=== PATIENT | female | born 1930 | race Caucasian/White ===

== ENCOUNTER 2018-05-21 23:27 | Emergency (ER) ==
[2018-05-21] MEDS ORDERED: LIDOCAINE HCL 1% SDV SUBCUT STA (23:32)
--- NOTE | 2018-05-21 23:35 | ED.PDOC ---
General ED Provider: Dr. MISSAEL BERMEO Chief Complaint: Fall Stated Complaint: Patient is an 87 year old who had an unwitnessed fall resulting in injury to the right forehead and bleeding. It is unknown if she had any loss of conciousness. Time Seen by Physician: 23:35 Mode of Arrival: Ambulance Information Source: [facility], EMT Exam Limitations: Dementia Primary Care Provider: PAUL BARBOSA Nursing and Triage Documentation Reviewed and Agree: Yes Does patient meet sepsis criteria?: No System Inflammatory Response Syndrome: Not Applicable Sepsis Protocol: For patient's 13 years and over: Temp is 96.8 and below OR 101 and greater Pulse >90 BPM Resp >20/minute Acutely Altered Mental Status Are patient's symptoms suggestive of a new infection, such as: -Pneumonia -Skin, Soft Tissue -Endocarditis -UTI -Bone, Joint Infection -Implantable Device -Acute Abdominal Infection -Wound Infection -Meningitis -Blood Stream Catheter Infection -Unknown Trauma/Injury Complaint Exam - Head Injury Complaint/Exam Location of Pain: Reports: Right, Forehead Mechanism of Injury: Reports: Trauma Onset/Duration: 1 hour Symptoms Are: Still present Aggravating: Reports: Unknown Alleviating: Reports: Unknown Associated Signs and Symptoms: Denies: Nausea, Vomiting Loss of Consciousness: Unknown Related History: Reports: Similar episode SDH Risk Factors: Present: Elderly, Recent trauma. Absent: Anticoagulant use, Coagulopathy Cervical Spine Injury Risk Factors: Present: None. Absent: Evidence of intoxication, Focal neuro deficit Related Surgical History: Reports: None Glascow Coma Scale (see protocol): 15 Focal Weakness: Present: None Focal Sensory Loss: Present: None Gag Reflex Present: Yes Head Picture: 1 - 4 x 2 cm Laceration Differential Diagnoses: Intracranial Bleed, Trauma Review of Systems - Review Of Systems Constitutional: Denies: Fever GI: Denies: Diarrhea, Vomiting Musculoskeletal: Reports: Joint pain (chronic ) Skin: Reports: Bruising Neurological: Reports: Headache, Other (chronic memory loss ) All Other Systems: Other (Limited due to demenait) Past Medical History - Past Medical History Endocrine: Reports: Dyslipidemia Cardiovascular: Reports: Hypertension (and hypotension.), CHF Respiratory: Reports: None Hematological: Reports: Anemia Gastrointestinal: Reports: GERD Genitourinary: Reports: Other (urinary incontinance ) Neuro/Psych: Reports: Anxiety, Depression, Dementia Musculoskeletal: Reports: Arthritis Cancer: Reports: None - Surgical History General Surgical History: Reports: Unknown - Family History Family History: Reports: Unknown - Social History Hx Substance Use: No Physical Exam - Physical Exam Appearance: Well-appearing Ill-appearing: None Pain Distress: None Eyes: MARCEL, EOMI ENT: Ears normal, Nose normal Neck: Supple Respiratory: Airway patent, Breath sounds clear Cardiovascular: Pulses normal, Bradycardia Skin: Warm, Dry Neurological: Alert, Disoriented Psychiatric: Affect appropriate, Mood appropriate Interpretation - Radiology Interpretation Radiology Interpretation By: Radiologist Radiology Results: No acute changes Exam Interpreted: CT Scan Procedures - Laceration/Wound Repair Right Forehead Laceration Wound Description: Stellate Wound Length (cm): 4 Wound Width: 2 Wound Depth: 0.5 Wound Explored: Clean Wound Irrigated: No Wound Prep: Hibiclens Anesthesia: Lidocaine Wound Repaired With: Sutures Suture Size and Type: 4.0 Prolene Number of Sutures: 13 (Running ) Sterile Dressing Applied?: Yes Splint Applied?: No Sling Applied?: No Critical Care Note - Critical Care Note Total Time (mins): 0 Course - Course Orders, Labs, Meds: Orders Category Date Time Status Diphth,Pertuss(Acell),Tet Vac [Boostrix] MEDS 05/22/18 00:33 Discontinued 0.5 ml IM .STK-MED ONE Lidocaine HCl/Pf [Lidocaine HCl 1% Sdv] MEDS 05/21/18 23:32 Discontinued 10 ml SUBCUT ONCE STA CT CERVICAL SPINE W/O CONTRAST Stat RADS 05/21/18 23:[address] HEAD W/O CONTRAST Stat RADS 05/21/18 23:33 Completed Medications Discontinued Medications Generic Name Dose Route Start Last Admin Trade Name Freq PRN Reason Stop Dose Admin Lidocaine HCl 10 ml 05/21/18 23:32 05/22/18 00:02 Lidocaine Hcl 1% Sdv SUBCUT 05/21/18 23:33 5 ml ONCE STA Administration Vital Signs: Temp Pulse Resp BP Pulse Ox 05/21/18 23:27 97.3 F L 57 L 18 121/50 L 96 Departure - Departure Time of Disposition: 01:00 Disposition: HOME SELF-CARE Discharge Problem: Falls Laceration of forehead without complication Qualifiers: Encounter type: initial encounter Qualified Code(s): S01.81XA - Laceration without foreign body of other part of head, initial encounter Instructions: Laceration (ED) Condition: Fair Pt referred to PMD for follow-up: Yes IPMP verified?: No Additional Instructions: HAVE SUTURES REMOVED IN 7-10 DAYS REPORT ANY SIGNS OF INFECTION TO THE DIAGNOSTIC RADIOLOGIST. RETURN IF WORSE. Allergies/Adverse Reactions: Allergies meperidine HCl [From Demerol] Adverse Reaction (Unverified 11/04/12 07:32) morphine Adverse Reaction (Unverified 11/03/12 14:45) Home Medications: Ambulatory Orders Atorvastatin Calcium 20 mg PO DAILY 11/03/12 Ferrous Sulfate 220 mg PO DAILY 11/03/12 Gabapentin 300 mg PO QPM 11/03/12 Hydrocodone/Acetaminophen [Lortab 5-500 Tablet] 1 each PO BID 11/03/12 Lorazepam [Ativan] 1 mg PO TID 11/03/12 Omeprazole [Prilosec] 20 mg PO DAILY 11/03/12 Amitriptyline HCl 25 mg PO DAILY 03/02/16 Amlodipine Besylate 2.5 mg PO DAILY 03/02/16 Hydrocodone/Acetaminophen [[place] 5-325 Tablet] 1 each PO PRN 03/02/16 Losartan Potassium 25 mg PO DAILY 03/02/16 Sotalol HCl [Sotalol] 80 mg PO BID 03/02/16 Disposition Discussed With: Patient, Family
[2018-05-21 23:41] VITALS: BP 121/50; TEMP 97.3; BMI 23.6
[2018-05-21] MEDS ORDERED: LIDOCAINE 1 % AMP 5 ML (SUTURES) ONE (23:59)
[2018-05-22] MEDS ORDERED: BOOSTRIX IM ONE ×2 (00:19→00:33)
--- NOTE | 2018-05-22 00:30 | CT ---
EXAM: CT head without contrast. HISTORY: Fall. PROCEDURE: Contiguous axial CT images of the head without contrast with coronal and sagittal reforma ts. FINDINGS: There is diffuse cerebral atrophy. The ventricles and basal cisterns are normal in size an d configuration. No evidence of mass or midline shift. No intracranial hemorrhage or evidence of la rge vessel infarct. No extra-axial fluid collection. There are chronic small vessel ischemic change s in the white matter. There is a right frontal scalp hematoma. No skull fracture. The paranasal sin uses and mastoid air cells are normal in appearance. Impression: No intracranial hemorrhage or skull fracture. Right frontal scalp hematoma. Chronic small vessel ischemic changes. Diffuse cerebral atrophy.
--- NOTE | 2018-05-22 00:36 | CT ---
CT cervical spine without contrast HISTORY: Fall with head injury TECHNIQUE: CT of the cervical spine with multiplanar reformations. FINDINGS: Reformatted images demonstrate normal alignment with preservation of vertebral body height . Multilevel disc space narrowing and endplate spondylosis mostly projecting anteriorly. Generally mild multilevel central canal narrowing. Multilevel facet arthropathy also present. No fracture see n on the axial or reformatted images. No acute surrounding soft tissue abnormalitites. Lung apices a re clear. IMPRESSION: No acute findings in the cervical spine.
== END 2018-05-22 00:43 | disposition home or self-care (01) ==
LOC: ED 23:27
DX: S01.81XA Laceration without foreign body of other part of head, initial encounter (principal); R53.1 Weakness; W06.XXXA Fall from bed, initial encounter; Y92.122 Bedroom in nursing home as the place of occurrence of the external cause
CPT/HCPCS: 90471; 90715; 99283